=== PATIENT | female | born 1995 | race African-American/Black ===

== ENCOUNTER → 2017-02-10 | Outpatient (CLI) | payer OTHER ==
[~2017-02-10] MED LIST: AMOX500C PO; IBUP800T23 PO; MOME17I EACH NARE; SPRI28TA PO
--- NOTE | 2017-02-10 18:16 | RADRPT ---
EXAM DATE/TIME: 02/10/2017 15:06 [facility] COMPARISON: No previous studies available for comparison. INDICATIONS : Vaginal bleeding. MEDICAL HISTORY : Vaginal bleeding. SURGICAL HISTORY : None. ENCOUNTER: Initial ACUITY: 2 months PAIN SCORE: 0/10 LOCATION: Bilateral pelvis MEASUREMENTS: TRANSVAGINAL: UTERUS: 6.7 x 4.2 x 3.5 cm ENDOMETRIAL STRIPE: 2 mm RIGHT OVARY: 3.8 x 2.5 x 2.2 cm LEFT OVARY: 4.4 x 2.7 x 2.8 cm FINDINGS: Complex mass with a hyperechoic component seen of the right ovary, measures 2.3 x 2.3 x 1.9 cm. There is a 2.5 x 2.2 x 2.1 cm simple appearing cyst of the left ovary. No evidence of torsion. Uterus within normal limits. There is free fluid in the pelvic cavity. 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 Simple cyst of the left ovary. Nonspecific free fluid. Rocael Rich MD on February 10, 2017 at 18:10 Board Certified Radiologist. This report was verified electronically.
== END ==
LOC: HRAD 14:41
PROVIDERS: ATTEND Family Medicine
DX: N93.9 Abnormal uterine and vaginal bleeding, unspecified (principal)
CPT/HCPCS: 76830; 76856

== ENCOUNTER 2017-02-12 09:52 | Emergency (ER) | payer OTHER ==
[~2017-02-12] VITALS: Ht 162.6 cm; Wt 60.0 kg
[2017-02-12 09:59] VITALS: BP 111/74; PULSE 90; RESP 16; TEMP 98.9; O2SAT 97
[2017-02-12] MEDS ORDERED: AMOX500C PO (10:22)
[2017-02-12] MEDS ORDERED: MOME17I EACH NARE (10:22)
[2017-02-12] MEDS ORDERED: IBUP800T23 PO (10:22)
--- NOTE | 2017-02-12 10:22 | PD ---
HPI Chief Complaint: ENT Complaint Time Seen by Provider: 10:21 Travel History International Travel<30 days: No Contact w/Intl Traveler<30days: No Traveled to known affect area: No History of Present Illness HPI 21-year-old female presents to the emergency Department with complaint of throat irritation, watery eyes, nasal congestion, sinus congestion, headache, ear pressure 3 weeks. Denies cough. Denies fever, vomiting. Denies shortness breath. Has been taking DayQuil and NyQuil for symptomatic management. No known allergies. Has no other medical complaints. No other modifying factors or associated signs and symptoms. PFSH Past Medical History Medical History: Denies Significant Hx Diminished Hearing: No Tetanus Vaccination: Unknown Influenza Vaccination: Yes ?: Not LMP: NOW Past Surgical History Surgical History: No Previous Surgery Social History Alcohol Use: No (SOCIALLY) Tobacco Use: No Substance Use: No Allergies-Medications (Allergen,Severity, Reaction): Coded Allergies: No Known Allergies (Unverified , 02/12/17) Reported Meds & Prescriptions Reported Meds & Active Scripts Active Ibuprofen 800 Mg Tab 800 Mg PO Q6HR PRN Nasonex Nasal [place] (Mometasone Furoate) 50 Mcg/Act Naspr 2 [place] EACH NARE DAILY PRN Amoxicillin 500 Mg Cap 500 Mg PO BID 10 Days Review of Systems Except as stated in HPI: all other systems reviewed are Neg Physical Exam Narrative GENERAL: Well-nourished, well-developed female patient, in no acute distress SKIN: Warm and dry. No rash. HEAD: Atraumatic. Normocephalic. Frontal and maxillary sinus tenderness on palpation. EYES: Pupils equal and round at 3 mm with brisk reaction. No scleral icterus. No injection or drainage. PERRLA. ENT: Mucosa pink and moist. Oropharynx without erythema, exudates, tonsillar edema.. No uvular edema. No uvular, palatal, or tonsillar deviation. Airway patent. EARS: Bilateral pinnae and external canals appear within normal limits. Bilateral tympanic membranes without erythema, dullness or perforation. NECK: Trachea midline. No lymphadenopathy. CARDIOVASCULAR: Regular rate and rhythm. No murmur appreciated. RESPIRATORY: No accessory muscle use. Clear to auscultation. Breath sounds equal bilaterally. GASTROINTESTINAL: Abdomen soft, non-tender, nondistended. Hepatic and splenic margins not palpable. Bowel sounds are active 4 quadrants. MUSCULOSKELETAL: No obvious deformities. No clubbing. No cyanosis. No edema. NEUROLOGICAL: Awake and alert. Oriented 3. No obvious cranial nerve deficits. Motor grossly within normal limits. Normal speech. Moves all extremities. 5/5 strength to all extremities. PSYCHIATRIC: Appropriate mood and affect; insight and judgment normal. Data Data Last Documented VS Vital Signs Date Time Temp Pulse Resp B/P Pulse Ox O2 Delivery O2 Flow Rate FiO2 02/12/17 09:59 98.9 90 16 111/74 97 MDM Medical Decision Making Medical Screen Exam Complete: Yes Emergency Medical Condition: Yes Medical Record Reviewed: Yes Differential Diagnosis Allergic rhinitis, sinusitis, URI Narrative Course 21-year-old female physical exam and history of present illness consistent with sinusitis. Patient is afebrile and nontoxic-appearing. No prescribed antibiotics for length of illness. Amoxicillin, ibuprofen, Nasonex nasal spray prescribed for home. Patient verbalizes understanding and agreement with treatment plan. Patient is medically cleared and stable for discharge. Discussed reasons to return to the emergency department. Instructed patient to follow up with primary care provider. Patient agrees with treatment plan. The patients vital signs are stable and the patient is stable for outpatient follow- up and treatment. Patient discharged home, stable and in no acute distress. Diagnosis Primary Impression: Sinusitis Qualified Code: J32.9 - Sinusitis, unspecified chronicity, unspecified location Referrals: [facility] Primary Care Physician Patient Instructions: Cold Symptoms (ED), General Instructions, Safe Use of Cough and Cold Medicines (ED), Sinusitis (ED) Departure Forms: Tests/Procedures, Work Release Enter return to work date: Feb 13, 2017 Additional Instructions: Antibiotics as prescribed and complete full course Ibuprofen or Tylenol as instructed and as needed for fever/pain [id number] cough and cold medications as directed and as needed for symptom management Get plenty of sleep/rest Drink plenty of fluids to prevent dehydration; popsicles and Gatorade Use an air humidifier/turn off ceiling fans Follow-up with primary care provider Return immediately to the emergency department with worsening of symptoms Med/Other Pt SpecificInfo: Prescription(s) given Scripts Ibuprofen 800 Mg Mlv001 Mg PO Q6HR PRN (PAIN) #30 TAB Ref 0 Prov:Angelia Chang 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
[2017-02-24] MEDS ORDERED: SPRI28TA PO (15:15)
== END 2017-02-12 10:28 | disposition home or self-care (01) ==
LOC: NEPK 09:52
DX: J32.9 Chronic sinusitis, unspecified (principal)
CPT/HCPCS: 99283

== ENCOUNTER → 2017-03-22 | Outpatient (CLI) | payer MEDICAID ==
[~2017-03-22] MED LIST changes: -AMOX500C PO; -MOME17I EACH NARE
--- NOTE | 2017-03-22 16:19 | RADRPT ---
EXAM DATE/TIME: 03/22/2017 15:19 [facility] COMPARISON: US PELVIS COMP W/TRANSVAGINAL, February 10, 2017, 15:06. INDICATIONS : Unspecified ovarian cysts. MEDICAL HISTORY : Ovarian cysts. Vaginal bleeding. SURGICAL HISTORY : Total abortions x2. ENCOUNTER: Subsequent ACUITY: 1 month PAIN SCORE: 0/10 LOCATION: Bilateral pelvis MEASUREMENTS: UTERUS: 7.0 x 4.1 x 3.5 cm ENDOMETRIAL STRIPE: 5 mm RIGHT OVARY: 4.0 x 2.5 x 3.1 cm LEFT OVARY: 2.7 x 2.0 x 2.2 cm FINDINGS: UTERUS: The myometrium has homogeneous echotexture without mass. RIGHT OVARY: A slightly greater than 3 cm heterogeneous solid primarily hyperechoic mass is again seen associated with the right ovary worrisome for dermoid LEFT OVARY: Ovary contains no mass or significant cystic lesion. MISCELLANEOUS: No free fluid. CONCLUSION: Solid right ovarian mass Rocael Packer MD on March 22, 2017 at 16:12 Board Certified Radiologist. This report was verified electronically.
== END ==
LOC: HRAD 13:50
PROVIDERS: ATTEND Family Medicine
DX: N83.209 Unspecified ovarian cyst, unspecified side (principal)
CPT/HCPCS: 76830; 76856

== ENCOUNTER 2017-07-17 10:05 | Emergency (ER) | payer MEDICAID ==
[~2017-07-17] VITALS: Ht 162.6 cm; Wt 59.0 kg
[~2017-07-17 10:05] MED LIST changes: +DIFL150T PO; +IBUP1TAB7 PO; -IBUP800T23 PO
[2017-07-17 10:06] VITALS: BP 117/77; PULSE 71; RESP 16; TEMP 98.7; O2SAT 100
--- NOTE | 2017-07-17 10:31 | PD ---
HPI Chief Complaint: ENT Complaint Time Seen by Provider: 10:21 Travel History International Travel<30 days: No Contact w/Intl Traveler<30days: No Traveled to known affect area: No History of Present Illness HPI 22yo F with no PMH presents to the ED with c/o throat pain since yesterday. + Odynophagia. Denies any fever, cough, chest pain, sob, n/v, abdominal pain, drooling, change in voice, diarrhea. PFSH Past Medical History Hx Anticoagulant Therapy: No Cardiovascular Problems: No Chemotherapy: No Cerebrovascular Accident: No Diabetes: No Diminished Hearing: No Respiratory: No ?: Not LMP: 07/14/17 Social History Alcohol Use: No (SOCIALLY) Tobacco Use: No Substance Use: No Allergies-Medications (Allergen,Severity, Reaction): Coded Allergies: No Known Allergies (Unverified Adverse Reaction, Unknown, 07/17/17) Reported Meds & Prescriptions Reported Meds & Active Scripts Active No Active Prescriptions or Reported Medications Review of Systems Except as stated in HPI: all other systems reviewed are Neg Physical Exam Narrative GENERAL: 22yo F not in distress. SKIN: Focused skin assessment warm/dry. HEAD: Atraumatic. Normocephalic. EYES: Pupils equal and round. No scleral icterus. No injection or drainage. ENT: Throat: Uvula midline. Not edematous. Mild erythema. No exudate on bilateral tonsils. Patent airway. No elevation of tongue or facial swelling. No trismus. +Increased bilateral nasal turbinate edema. NECK: +TTP left cervical adenopathy. CARDIOVASCULAR: Regular rate and rhythm. No murmur appreciated. RESPIRATORY: No accessory muscle use. Clear to auscultation. Breath sounds equal bilaterally. GASTROINTESTINAL: Abdomen soft, non-tender, nondistended. MUSCULOSKELETAL: No obvious deformities. No clubbing. No cyanosis. No edema. NEUROLOGICAL: Awake and alert. No obvious cranial nerve deficits. Motor grossly within normal limits. Normal speech. PSYCHIATRIC: Appropriate mood and affect; insight and judgment normal. Data Data Last Documented VS Vital Signs Date Time Temp Pulse Resp B/P (MAP) Pulse Ox O2 Delivery O2 Flow Rate FiO2 07/17/17 10:21 16 07/17/17 10:06 98.7 71 117/77 (90) 100 Room Air Orders Orders Group A Rapid Strep Screen (11/18/17 10:26) Acetaminophen 650 Mg/20 Ml Liq (Tylenol (07/17/17 10:45) Strep Culture (Group A) (07/17/17 10:30) [facility] Medical Decision Making Medical Screen Exam Complete: Yes Emergency Medical Condition: Yes Differential Diagnosis Viral pharyngitis vs. strep pharyngitis vs. URI Narrative Course 22yo well appearing female here with throat pain since yesterday. Pt given acetaminophen PO and pain improved. Group A strep negative. Return precautions given. Pt is to follow up with her PMD in 3-7 days. Diagnosis Primary Impression: Viral pharyngitis Patient Instructions: General Instructions Departure Forms: Tests/Procedures Additional Instructions: Please follow up with your primary care physician in 3-7 days. Return to the ED if symptoms worsen. Med/Other Pt SpecificInfo: Prescription(s) given Scripts Acetaminophen Liq (Acetaminophen Extra Strength Liq) 500 Mg/15 Ml Soln 500 MG PO Q4-6H Y for PAIN SCALE 1 TO 4 for 5 Days, ML 0 Refills Prov: Edith Jalloh DO 07/17/17 Disposition: 01 DISCHARGE HOME Condition: Stable Edith Jalloh DO Jul 17, 2017 10:31
[2017-07-17] MEDS ORDERED: ACETAMINOPHEN 650 MG/20.3 ML UDC PO ONE (10:45)
[2017-07-17] MEDS ORDERED: ACET500L PO (11:43)
[2017-07-17 11:46] VITALS: RESP 16
== END 2017-07-17 11:48 | disposition home or self-care (01) ==
LOC: NEPD 10:05
DX: J02.8 Acute pharyngitis due to other specified organisms (principal); B97.89 Other viral agents as the cause of diseases classified elsewhere
CPT/HCPCS: 87081; 87880; 99283